=== PATIENT | male | born 1980 | race Caucasian/White ===

== ENCOUNTER 2018-01-08 14:50 | Emergency (ER) | payer MEDICAID ==
[~2018-01-08] VITALS: Ht 175.3 cm; Wt 91.6 kg
[2018-01-08 15:15] VITALS: BP 131/77
--- NOTE | 2018-01-08 16:20 | NUR ---
PATIENT PRESENTS TO ED WITH C/O PAIN TO BACK, ABSCESS NOTED UNDER RIGHT SCAPULA. AAOX4 WITH EVEN AND STEADY GAIT; STATES SHARP PAIN TO BACK 7/10 AT THIS TIME; VSS; ER MD MADE AWARE OF PT STATUS.
--- NOTE | 2018-01-08 16:40 | NUR ---
Patient being evaluated by physician at bedside.
[2018-01-08] MEDS ORDERED: LIDOCAINE 1% 500 MG/50 ML VIAL INJ SCH (16:45)
[2018-01-08] MEDS ORDERED: KETOROLAC 60 MG/2 ML VIAL IM ONE (16:45)
[2018-01-08] MEDS ORDERED: LIDOCAINE MPF 1% - **ER/OR** 5 ML ONE (17:21)
--- NOTE | 2018-01-08 17:36 | NUR ---
PT TO BED 10.
[2018-01-08] MEDS ORDERED: HYDROcodone/APAP 5/325 MG 1 TAB TAB PO ONE (18:00)
[2018-01-08] MEDS ORDERED: cefTRIAXone 1,000 MG in LIDOCAINE MPF 1% - **ER/OR** 2.1 ML IM ONE (18:05)
[2018-01-08 18:37] VITALS: BP 129/70
--- NOTE | 2018-01-08 18:37 | NUR ---
Patient discharged with v/s stable. Written and verbal after care instructions given and explained. Patient alert, oriented and verbalized understanding of instructions. Ambulatory with steady gait. All questions addressed prior to discharge. ID band removed. Patient advised to follow up with PMD. Rx of [place], Ibuprofen, and Cephalexin given. Patient educated on indication of medication including possible reaction and side effects. Opportunity to ask questions provided and answered.
== END 2018-01-08 18:37 | disposition home or self-care (01) ==
LOC: MED 14:50
DX: L72.3 Sebaceous cyst (principal)
CPT/HCPCS: 10060; 90471; 90715; 96372; 99284; J0696; J1885; J2001

== ENCOUNTER 2018-01-29 22:47 | Emergency (ER) | payer MEDICAID ==
[~2018-01-29] VITALS: Ht 175.3 cm; Wt 92.3 kg
[2018-01-29 23:03] VITALS: BP 150/97
--- NOTE | 2018-01-29 23:35 | NUR ---
PT TAKEN TO BED 3
--- NOTE | 2018-01-29 23:40 | NUR ---
37/M CAME IN WITH , C/O 05/15 BURNING R UPPER BACK PAIN, NONRADIATING, CONSTANT. PT HAS A R UPPER BACK WOUND WITH MINIMAL YELLOW DISCHARGE, REDNESS, SLIGHT SWELLING, +TENDERNESS TO TOUCH, STARTED X1 WEEK. PT HAD A R UPPER CYST REMOVED 3 WEEKS AGO, FINISHED CEPHALEXIN/KEFLEX COURSE. PT REPORTS TAKING IBUPROFEN OCCASIONALLY WITH MINIMAL RELIEF. AOX4, AMBULATORY, PT DENIES CP, SOB, FEVER, N/V/D. PT DENIES HX, RX. NKA.
[2018-01-30] MEDS ORDERED: LIDOCAINE 1% 500 MG/50 ML VIAL INJ SCH ×2 (01:00→01:04)
[2018-01-30] MEDS ORDERED: LIDOCAINE MPF 1% - **ER/OR** 5 ML ONE (01:04)
--- NOTE | 2018-01-30 01:45 | NUR ---
DR SANTOS AT BEDSIDE TO CLEAN R UPPER BACK ABSCESS I&D, ORDERED LIDOCAINE 1% 50ML MD CHRISTIANE TO ADMINISTER LIDOCAINE 1% 5ML.
[2018-01-30] MEDS ORDERED: BACITRACIN OINT 500 UNITS/GM PKT TP ONE ×2 (02:03)
--- NOTE | 2018-01-30 02:05 | NUR ---
R UPPER BACK I&D FINISHED. PT TOLERATED WELL. COVERED R UPPER BACK WITH BACITRACIN OINTMENT, 4X4 GAUZE AND PRESSURE DRESSING. PT STARTED FEELING DIZZY, PT POSITIONED FOR COMFORT IN BED, VSS.
--- NOTE | 2018-01-30 02:20 | NUR ---
PT STATED THAT HE FEELS BETTER, PT DENIES DIZZINESS, SOB OR ACUTE DISTRESS. PT ABLE TO AMBULATE INDEPENDENTLY.
[2018-01-30 02:26] VITALS: BP 124/72
--- NOTE | 2018-01-30 02:26 | NUR ---
Patient discharged with v/s stable. Written and verbal after care instructions given and explained. Patient alert, oriented and verbalized understanding of instructions. Ambulatory with steady gait. All questions addressed prior to discharge. ID band removed. Patient advised to follow up with PMD. Rx of [place], KEFLEX, BACTRIM given. Patient educated on indication of medication including possible reaction and side effects. Opportunity to ask questions provided and answered.
== END 2018-01-30 02:26 | disposition home or self-care (01) ==
LOC: MED 22:47
DX: L02.212 Cutaneous abscess of back [any part, except buttock and flank] (principal); T81.4XXA Infection following a procedure, initial encounter; X58.XXXA Exposure to other specified factors, initial encounter
CPT/HCPCS: 10060; 87070; 99283; J2001